=== PATIENT | female | born 1980 | race American Indian/Alaskan Native ===

== ENCOUNTER 2017-01-27 09:22 | Emergency (ER) | payer OTHER ==
--- NOTE | 2017-01-27 10:09 | Emergency Department Report ---
Entered by PAULA JAIN, acting as scribe for BLAINE GARCIA NP. Chief Complaint: Abdominal Pain Stated Complaint: ABD PAIN Time Seen by Provider: 01/27/17 09:55 - HPI History of Present Illness: 36 y/o non-toxic, non ill appearing female in no acute distress presents to ED c /o epigastric abdominal pain since 3 months ago with associated weight loss. Has been seen multiple times at other hospitals with x-rays, U/S, CT and was told this was a result of gastric lap band. Pt notes associated hematemesis, N/V , and constipation. Reports inability to swallow for past couple of days. - ROS Review of Systems: + epigastric abdominal pain, N/V, hematemesis, constipation - diarrhea - Exam Vital Signs: Vital Signs 01/27/17 09:46 Temperature 98.6 F Pulse Rate 120 H Respiratory 20 Rate Blood Pressure 159/114 O2 Sat by Pulse 97 Oximetry Physical Exam: Pt is non-toxic, non ill appearing, in no acute distress. Epigastric abdominal pain, no point tenderness or rebound tenderness MSE screening note: Focused history and physical exam performed. Due to findings the following was ordered: EKG, amylase, lipase, CBC, CMP, troponin, BMP, UA, CT abd/pelvis w/ contrast, CT chest w/ contrast ED Disposition for MSE Condition: Stable Instructions: Abdominal Pain (ED) This documentation as recorded by the scribe,PAULA JAIN,accurately reflects the service I personally performed and the decisions made by JOSE hathaway MARTIN, TIM.
[2017-01-27 10:21] LABS: Basophils % (Auto) 0.8 % (0.0-1.8); Eosinophils % (Auto) 0.1 % (0.0-4.3); Hematocrit 37.3 % (30.3-42.9); Hemoglobin 11.7 gm/dl (10.1-14.3); Mean Corpuscular HGB Conc 31 % (30-34); Mean Corpuscular Hemoglobin 27 pg (28-32); Mean Corpuscular Volume 85 fl (79-97); Platelet Count 291 K/mm3 (140-440); Red Blood Count 4.39 M/mm3 (3.65-5.03); Red Cell Distribution Width 15.4 % (13.2-15.2); White Blood Count 16.2 K/mm3 (4.5-11.0)
[2017-01-27 10:37] LABS: Alanine Aminotransferase 11 units/L (7-56); Albumin 3.8 g/dL (3.9-5); Albumin/Globulin Ratio 0.9 %; Amylase 40 units/L (27-131); Anion Gap 22 mmol/L; BUN/Creatinine Ratio 18.57; Blood Urea Nitrogen 13 mg/dL (7-17); Calcium 9.6 mg/dL (8.4-10.2); Carbon Dioxide 23 mmol/L (22-30); Chloride 100.3 mmol/L (98-107); Glucose 85 mg/dL (65-100); Lipase 11 units/L (13-60); Potassium 4.1 mmol/L (3.6-5.0); Sodium 141 mmol/L (137-145); Total Protein 7.9 g/dL (6.3-8.2)
[2017-01-27] MEDS ORDERED: NACL ONE (10:44)
--- NOTE | 2017-01-27 11:49 | Cat Scan Report ---
CT SCAN OF THE ABDOMEN AND PELVIS WITH CONTRAST: HISTORY: Abdominal pain. TECHNIQUE: Helical CT in 1.25mm intervals following IV contrast. Sagittal and coronal reconstructions. FINDINGS: No relevant comparison. A LAP band device has been previously placed. The position of the band appears slightly abnormal. Slippage is suspected. There is also a small fluid collection adjacent to the port of the LAP band in the umbilical region which probably represents a seroma measuring 3 x 4 cm. Consider surgical consult. The bowel loops are normal caliber and wall thickness given no oral contrast was administered. No obvious abnormality is detected. The appendix is not confidently identified. The uterus is enlarged and lobular. There appear to be 2 large fibroids which enhance. A 9 cm fundal fibroid is identified. There is also a 12 cm exophytic fibroid from the left side of the uterine fundus which projects into the left abdomen. The ovaries are not confidently identified. The liver is normal in size and is without focal defect. No gallstones or biliary dilatation are noted. The spleen and pancreas demonstrate a normal size and attenuation with no evidence of abnormal mass. The kidneys are normal in size and position with no evidence of hydronephrosis or mass. The adrenal glands are normal. The abdominal aorta is normal. No abnormalities are identified within the retroperitoneum or mesentery. There is no evidence of peritoneal air or fluid. There is no evidence of any abnormal masses or fluid collections within the pelvis. No adenopathy is identified. The bladder is normal. IMPRESSION: No acute inflammatory process is appreciated. Slightly abnormal appearance of the LAP band device. Please see above. Uterine fibroid disease.
[2017-01-27] MEDS ORDERED: ZOFRAN IV ONE (12:23)
[2017-01-27] MEDS ORDERED: PEPCID IV ONE (12:23)
[2017-01-27] MEDS ORDERED: NACL 0.9% 1000 ML 2,000 ML IV ONE (12:23)
[2017-01-27] MEDS ORDERED: DILAUDID IV ONE (12:24)
--- NOTE | 2017-01-27 12:29 | Emergency Department Report ---
ED General Adult HPI - General Chief complaint: Abdominal Pain Stated complaint: ABD PAIN Time Seen by Provider: 01/27/17 11:10 Source: patient, RN notes reviewed Mode of arrival: Ambulatory Limitations: No Limitations - History of Present Illness Initial comments: This is a 36-year-old female. She is previously unknown to me. Reports a history of GERD/gastritis. The patient presents to the ER with epigastric abdominal pain for 3 months. Patient had a lap band surgery done in 2011, her bariatric surgeon is Dr. Angelina Contreras The patient is sent to the ER for evaluation of dog abdominal pain, nausea and vomiting. The abdominal pain is epigastric. It is sharp. It does not radiate anywhere. Patient reports multiple episodes of nausea and vomiting. Patient reports that she has not defecated for a while, she denies irritative and obstructive urinary symptoms, she denies shortness of breath, chest pain. She reports that she has vomited so much, that she's had a few episodes of blood tinged emesis. She denies bright red blood per rectum. -: Gradual, month(s) Severity scale (0 -10): 10 Consistency: intermittent Improves with: rest Worsens with: eating, movement Associated Symptoms: loss of appetite, malaise, nausea/vomiting, weakness. denies: chest pain - Related Data Home Medications Medication Instructions Recorded Confirmed Last Taken LORazepam [Ativan] 1 mg PO BID 01/27/17 01/27/17 Unknown Promethazine [Phenergan TAB] 25 mg PO Q6HR PRN 01/27/17 01/27/17 Unknown metFORMIN [Glucophage] 500 mg PO QDAY 01/27/17 01/27/17 Unknown Previous Rx's Medication Instructions Recorded Last Taken Type Ciprofloxacin HCl [Ciprofloxacin 500 mg PO BID #10 tablet 01/27/17 Unknown Rx TAB] Dicyclomine [Bentyl] 10 mg PO QID PRN #20 capsule 01/27/17 Unknown Rx Famotidine [Pepcid] 20 mg PO QDAY #30 tablet 01/27/17 Unknown Rx Metoclopramide [Reglan] 10 mg PO QID PRN #30 tablet 01/27/17 Unknown Rx oxyCODONE [Roxicodone] 5 mg PO Q6HR PRN #15 tablet 01/27/17 Unknown Rx Allergies Allergy/AdvReac Type Severity Reaction Status Date / Time No Known Allergies Allergy Unverified 07/28/13 09:57 ED Review of Systems ROS: Stated complaint: ABD PAIN Other details as noted in HPI Constitutional: denies: fever Eyes: denies: vision change ENT: denies: epistaxis Respiratory: denies: cough Cardiovascular: denies: chest pain Gastrointestinal: abdominal pain Genitourinary: denies: urgency, dysuria Musculoskeletal: denies: back pain Skin: denies: lesions Neurological: denies: weakness Psychiatric: anxiety ED Past Medical Hx - Past Medical History Previous Medical History?: Yes Hx Hypertension: Yes Hx GERD: Yes Hx COPD: Yes Additional medical history: Obesity, Hypoglycemia, Cyst on esophagus - Surgical History Past Surgical History?: Yes Additional Surgical History: Lap band surgery - Social History Smoking Status: Never Smoker Substance Use Type: Prescribed - Medications Home Medications: Home Medications Medication Instructions Recorded Confirmed Last Taken Type Ciprofloxacin HCl [Ciprofloxacin 500 mg PO BID #10 tablet 01/27/17 Unknown Rx TAB] Dicyclomine [Bentyl] 10 mg PO QID PRN #20 capsule 01/27/17 Unknown Rx Famotidine [Pepcid] 20 mg PO QDAY #30 tablet 01/27/17 Unknown Rx LORazepam [Ativan] 1 mg PO BID 01/27/17 01/27/17 Unknown History Metoclopramide [Reglan] 10 mg PO QID PRN #30 tablet 01/27/17 Unknown Rx Promethazine [Phenergan TAB] 25 mg PO Q6HR PRN 01/27/17 01/27/17 Unknown History metFORMIN [Glucophage] 500 mg PO QDAY 01/27/17 01/27/17 Unknown History oxyCODONE [Roxicodone] 5 mg PO Q6HR PRN #15 tablet 01/27/17 Unknown Rx ED Physical Exam - General Limitations: No Limitations General appearance: obese - Head Head exam: Present: atraumatic, normocephalic - Eye Eye exam: Present: normal appearance, EOMI. Absent: nystagmus - ENT ENT exam: Present: normal exam, normal orophraynx, mucous membranes moist, normal external ear exam - Neck Neck exam: Present: normal inspection, full ROM. Absent: tenderness, meningismus - Respiratory Respiratory exam: Present: normal lung sounds bilaterally. Absent: respiratory distress, wheezes, rales, rhonchi, stridor, chest wall tenderness, accessory muscle use, decreased breath sounds, prolonged expiratory - Cardiovascular Cardiovascular Exam: Present: regular rate, normal rhythm, normal heart sounds. Absent: bradycardia, tachycardia, irregular rhythm, systolic murmur, diastolic murmur, rubs, gallop - GI/Abdominal GI/Abdominal exam: Present: soft, normal bowel sounds. Absent: distended, tenderness, guarding, rebound, rigid, pulsatile mass - Rectal Rectal exam: Present: normal inspection, normal rectal tone, heme (-) stool ( during rectal examination, I am escorted by nurse CALVIN MYERS) - Extremities Exam Extremities exam: Present: normal inspection, full ROM, normal capillary refill. Absent: tenderness, pedal edema, joint swelling, calf tenderness - Back Exam Back exam: Present: normal inspection, full ROM. Absent: tenderness, CVA tenderness (R), CVA tenderness (L), muscle spasm, paraspinal tenderness, vertebral tenderness - Neurological Exam Neurological exam: Present: alert, oriented X3, normal gait, other (Extraocular movements intact. Tongue midline. No facial droop. Facial sensation intact to light touch in the V1, V2, V3 distribution bilaterally. 5 and 5 strength in 4 extremities.. Sensation is intact to light touch in 4 extremities.). Absent : reflexes normal - Psychiatric Psychiatric exam: Present: normal affect, normal mood - Skin Skin exam: Present: warm, dry, intact, normal color. Absent: rash ED Course Vital Signs 01/27/17 01/27/17 01/27/17 09:46 10:52 13:37 Temperature 98.6 F Pulse Rate 120 H 116 H Respiratory 20 18 18 Rate Blood Pressure 159/114 Blood Pressure 174/122 [Left] O2 Sat by Pulse 97 97 Oximetry 01/27/17 01/27/17 15:20 15:42 Temperature Pulse Rate 112 H 98 H Respiratory 18 18 Rate Blood Pressure Blood Pressure 153/111 166/107 [Left] O2 Sat by Pulse 95 95 Oximetry - Reevaluation(s) Reevaluation #1: 01/27/17 13:14 Differential diagnosis: GERD, gastritis, reflux, lap band malfunction Assessment and plan: 36-year-old female with reported abdominal pain, nausea, vomiting, reported bloody emesis. The patient reports that she is seen in another hospital a few days ago, [facility] in [place], had a swallow study done, indicates that it demonstrated a nonspecific fluid collection next to the LAP-BAND. The patient is seen today by her bariatric surgeon, he is going to evaluate her and make recommendations regarding her management. I doubt acute coronary syndrome, she is low risk by ADILSON score, low risk by heart score, I doubt pulmonary embolus, she is low risk by well's criteria, and given her clinical exam, history, CT scan findings, bariatric malfunction the most likely etiology of the patient's pain. Reevaluation #2: 01/27/17 13:26 Dr Carmona aspirates 7 cc of fluid. He recommends an upper GI series. This is ordered. He indicates that patient can follow-up with him in the office within the next 48-72 hours. Reevaluation #3: 01/27/17 15:44 tachycardia resolved. Tolerating liquid feeds. Belly soft on repeat examination. Upper GI series is appreciated. This has been specifically addressed by the patient's bariatric surgeon, he indicates it is acceptable to discharge the patient with this, clinically I dont think the patient is obstructed, she is able to tolerate ice chips and liquid feeds. The patient will be discharged with pain medication, nausea medication, instructions to follow up with her outpatient bariatric surgeon. 01/27/17 15:53 ED Medical Decision Making - Lab Data Result diagrams: 01/27/17 10:05 01/27/17 10:05 Vital Signs 01/27/17 01/27/17 09:46 10:52 Temperature 98.6 F Pulse Rate 120 H 116 H Respiratory 20 18 Rate Blood Pressure 159/114 Blood Pressure 174/122 [Left] O2 Sat by Pulse 97 97 Oximetry Lab Results 01/27/17 01/27/17 01/27/17 Range/Units 10:05 10:05 10:05 WBC 16.2 H (4.5-11.0) K/mm3 RBC 4.39 (3.65-5.03) M/mm3 Hgb 11.7 (10.1-14.3) gm/dl Hct 37.3 (30.3-42.9) % MCV 85 (79-97) fl MCH 27 L (28-32) pg MCHC 31 (30-34) % RDW 15.4 H (13.2-15.2) % Plt Count 291 (140-440) K/mm3 Lymph % (Auto) 13.6 (13.4-35.0) % Anderson % (Auto) 6.1 (0.0-7.3) % Eos % (Auto) 0.1 (0.0-4.3) % Baso % (Auto) 0.8 (0.0-1.8) % Lymph # 2.2 (1.2-5.4) K/mm3 Anderson # 1.0 H (0.0-0.8) K/mm3 Eos # 0.0 (0.0-0.4) K/mm3 Baso # 0.1 (0.0-0.1) K/mm3 Seg Neutrophils % 79.4 H (40.0-70.0) % Seg Neutrophils # 12.9 H (1.8-7.7) K/mm3 Sodium 141 (137-145) mmol/L Potassium 4.1 (3.6-5.0) mmol/L Chloride 100.3 (98-107) mmol/L Carbon Dioxide 23 (22-30) mmol/L Anion Gap 22 mmol/L BUN 13 (7-17) mg/dL Creatinine 0.7 (0.7-1.2) mg/dL Estimated GFR > 60 ml/min BUN/Creatinine Ratio 18.57 % Glucose 85 (65-100) mg/dL Calcium 9.6 (8.4-10.2) mg/dL Total Bilirubin 0.80 (0.1-1.2) mg/dL ALT 11 (7-56) units/L Alkaline Phosphatase 76 (35-129) units/L Troponin T < 0.010 (0.00-0.029) ng/mL Total Protein 7.9 (6.3-8.2) g/dL Albumin 3.8 L (3.9-5) g/dL Albumin/Globulin Ratio 0.9 % Amylase 40 (27-131) units/L Lipase 11 L (13-60) units/L HCG, Quant (0-4) mIU/mL 01/27/17 01/27/17 Range/Units 12:33 12:33 WBC (4.5-11.0) K/mm3 RBC (3.65-5.03) M/mm3 Hgb (10.1-14.3) gm/dl Hct (30.3-42.9) % MCV (79-97) fl MCH (28-32) pg MCHC (30-34) % RDW (13.2-15.2) % Plt Count (140-440) K/mm3 Lymph % (Auto) (13.4-35.0) % Anderson % (Auto) (0.0-7.3) % Eos % (Auto) (0.0-4.3) % Baso % (Auto) (0.0-1.8) % Lymph # (1.2-5.4) K/mm3 Anderson # (0.0-0.8) K/mm3 Eos # (0.0-0.4) K/mm3 Baso # (0.0-0.1) K/mm3 Seg Neutrophils % (40.0-70.0) % Seg Neutrophils # (1.8-7.7) K/mm3 Sodium (137-145) mmol/L Potassium (3.6-5.0) mmol/L Chloride (98-107) mmol/L Carbon Dioxide (22-30) mmol/L Anion Gap mmol/L BUN (7-17) mg/dL Creatinine (0.7-1.2) mg/dL Estimated GFR ml/min BUN/Creatinine Ratio % Glucose (65-100) mg/dL Calcium (8.4-10.2) mg/dL Total Bilirubin (0.1-1.2) mg/dL ALT (7-56) units/L Alkaline Phosphatase (35-129) units/L Troponin T < 0.010 (0.00-0.029) ng/mL Total Protein (6.3-8.2) g/dL Albumin (3.9-5) g/dL Albumin/Globulin Ratio % Amylase (27-131) units/L Lipase (13-60) units/L HCG, Quant < 2 (0-4) mIU/mL - EKG Data -: EKG Interpreted by In EKG shows normal: sinus rhythm Rate: bradycardia - EKG Data 01/27/17 13:14 Sinus tachycardia, 112 bpm, normal intervals, normal axis, not morphologically consistent with STEMI - Radiology Data Radiology results: report reviewed, image reviewed CT scan of the abdomen and pelvis with IV contrast: Lap band device has been previously placed. The position of the band appears slightly abnormal. Slippage is suspected. There is also a small fluid collection next to the port of the lap band in the umbilical region, most likely represents a seroma, 3.4 cm. The bowel loops are normal in caliber. Wall thickness appears unremarkable, the appendix is not confidently identified. The uterus is enlarged and globular. 2 large fibroid uterus lesions noted. X- ray of the chest is negative for acute disease. Upper GI series: There is slippage of the lap band. This may also mildly obstruct as there is poor passage of the contrast passed the lap band. Critical care attestation.: If time is entered above; I have spent that time in minutes in the direct care of this critically ill patient, excluding procedure time. ED Disposition Clinical Impression: Abdominal pain Disposition: DISCHARGED TO HOME OR SELFCARE Is pt being admited?: No Does the pt Need Aspirin: No Condition: Stable Instructions: Abdominal Pain (ED) Additional Instructions: Do not take metformin for the next 48 hours. Take the pain medication, nausea medication, antibiotics as directed. Follow-up with your bariatric surgeon within the next week. Diet as tolerated. Drink plenty of fluids. Avoid heavy and spicy foods. Return to the ER right away with new pain, worsened pain, migration of pain, fevers or chills, intractable nausea or vomiting, inability to tolerate liquid feeds. If taking the oxycodone medication, do not consume alcohol, drive, make important decisions. Prescriptions: Ciprofloxacin HCl [Ciprofloxacin TAB] 500 mg PO BID #10 tablet Dicyclomine [Bentyl] 10 mg PO QID PRN #20 capsule PRN Reason: Pain Famotidine [Pepcid] 20 mg PO QDAY #30 tablet Metoclopramide [Reglan] 10 mg PO QID PRN #30 tablet PRN Reason: Nausea oxyCODONE [Roxicodone] 5 mg PO Q6HR PRN #15 tablet PRN Reason: Pain Referrals: PRIMARY CARE, [Primary Care Provider] - 3-5 Days CAROLE CONTRERAS MD [Staff Physician] - 3-5 Days JOSE L REEVES MD [Staff Physician] - 3-5 Days
[2017-01-27] MEDS ORDERED: XYLOCAINE 1% 20 mL ONE (13:07)
[2017-01-27 13:08] LABS: Alkaline Phosphatase 76 units/L (35-129)
[2017-01-27] MEDS ORDERED: XYLOCAINE 1% 20 mL INFILTRATI ONE (13:31)
[2017-01-27 13:47] LABS: Bacteria,Urine 1+ /HPF (Negative); Bilirubin,Urine NEG (Negative); Blood,Urine NEG (Negative); Ketones,Urine 80 mg/dL (Negative); Leukocyte Esterase,Urine NEG (Negative); Mucus,Urine 2+ /HPF; Nitrite,Urine NEG (Negative); Urobilinogen,Urine < 2.0 mg/dL (<2.0)
--- NOTE | 2017-01-27 15:05 | XRay Report ---
AP CHEST : 01/27/17 09:22:00 CLINICAL: Hemoptysis or hematemesis. COMPARISON:07/07/08 FINDINGS: Cardiomegaly and redistribution of pulmonary blood flow to the upper lobes is partially related to body habitus and the portable technique. The lungs are also underexpanded but clear. The bones and soft tissues are unremarkable. IMPRESSION: Cardiomegaly but no CHF.No pneumonia.
--- NOTE | 2017-01-27 15:27 | Fluoroscopy Report ---
UPPER GI SERIES WITH AIR-CONTRAST HISTORY: Abdominal pain, evaluate late band. FINDINGS: Deglutition is normal. No evidence for aspiration. The esophagus is normal caliber and mucosal pattern. There is delayed emptying of the esophagus throughout this exam. Occasional esophageal spasm was also witnessed. A LAP band is identified which is in an abnormal position. Slippage of the lap band is suspected. This may also mildly obstruct as there is poor passage of the contrast past the LAP band. The distal stomach and visualized duodenum are within normal limits. IMPRESSION: Slippage of the LAP band is suspected. This appears to mildly obstruct the patient. There is poor emptying of the esophagus and proximal stomach throughout this exam.
[2017-01-27] MEDS ORDERED: NORMODYNE IV ONE (15:39)
[2017-01-27 15:43] VITALS: BP 166/107
--- NOTE | 2017-01-27 16:16 | Operative Report ---
PREOPERATIVE DIAGNOSES: Nausea, vomiting, status post tight band possible slippage. POSTOPERATIVE DIAGNOSES: Nausea, vomiting, status post tight band possible slippage. PROCEDURE: Band adjustment at bedside. The patient tolerated the procedure well. DESCRIPTION OF PROCEDURE: I saw the patient at bedside. The area of the port prepped, ____ aspiration recommended. ____ aspiration of fluid, removed 7 mL of fluid from her band. Needle removed. VAC was placed. The patient tolerated liquids post procedure. JOB# [id number] STEVEN/JASPREET
--- NOTE | 2017-01-28 07:06 | Consultation ---
REASON FOR VISIT: Nausea, vomiting, status post lap band. HISTORY OF PRESENT ILLNESS: A 36-year-old year female with status post lap band, who had not seen in about 4 years. This client is up in the ER with nausea, vomiting, inability to keep anything down for the last 2-3 months; however, the last couple of days, she has not been able to keep her own saliva down. She has a low-grade fever, but otherwise unremarkable. PAST MEDICAL HISTORY: No diabetes, hypertension. MEDICATIONS: Per chart. ALLERGIES: None. SOCIAL HISTORY: Not drink or smoke. REVIEW OF SYSTEMS: Otherwise, unremarkable. PHYSICAL EXAMINATION: VITAL SIGNS: Stable. T-max 100. HEENT: Unremarkable. Pupils equal, reactive. NECK: No JVD. Trachea midline. RESPIRATORY: Clear. CARDIOVASCULAR: Regular rate and rhythm. ABDOMEN: Soft, nontender. Port in good position. EXTREMITIES: Good range of motion. NEUROLOGIC: Intact. PSYCHIATRIC: Alert and oriented x 3. LABORATORY DATA: Show white count is 16, otherwise unremarkable. IMAGING DATA: CT scan of the abdomen and pelvis reveals a lap band in place, probable slippage chronically. No evidence of ischemia noted. The port in good position. There is a fluid collection inferior to the port and that looks old and chronic. ASSESSMENT AND PLAN: Nausea, vomiting, probable band 2 type with associated slip. We will take off the slipped rubber band today and then get an upper GI post-fluid removal, make sure contrast goes through the band. If contrast does not go through the band then she will need a band removal. The patient understands the plan and agrees to proceed. JOB# [id number] STEVEN/JASPREET
== END 2017-01-27 16:26 | disposition home or self-care (01) ==
LOC: ED 09:22
DX: R10.13 Epigastric pain (principal); I10 Essential (primary) hypertension; K21.9 Gastro-esophageal reflux disease without esophagitis; J45.909 Unspecified asthma, uncomplicated
CPT/HCPCS: 10160; 36415; 71010; 74177; 74247; 80053; 81001; 82150; 82271; 83690; 84484; 84702; 85025; 93005; 93010; 96374; 96375; 99285; J1170; J2405; J7030; Q9967

== ENCOUNTER 2017-01-31 09:19 | Day surgery (SDC) | payer SELFPAY ==
[2017-01-31 10:55] LABS: Basophils % (Auto) 1.1 % (0.0-1.8); Eosinophils % (Auto) 5.8 % (0.0-4.3); Hematocrit 37.5 % (30.3-42.9); Hemoglobin 11.8 gm/dl (10.1-14.3); Mean Corpuscular HGB Conc 31 % (30-34); Mean Corpuscular Hemoglobin 27 pg (28-32); Mean Corpuscular Volume 86 fl (79-97); Platelet Count 310 K/mm3 (140-440); Red Blood Count 4.38 M/mm3 (3.65-5.03); Red Cell Distribution Width 14.9 % (13.2-15.2); White Blood Count 6.9 K/mm3 (4.5-11.0)
[2017-01-31 11:28] LABS: Anion Gap 18 mmol/L; Blood Urea Nitrogen 8 mg/dL (7-17); Calcium 9.4 mg/dL (8.4-10.2); Carbon Dioxide 28 mmol/L (22-30); Chloride 99.1 mmol/L (98-107); Glucose 82 mg/dL (65-100); Potassium 3.6 mmol/L (3.6-5.0); Sodium 141 mmol/L (137-145)
[2017-01-31] MEDS ORDERED: NACL 0.9% 1000 ML 1,000 ML IV SCH (14:00)
[2017-01-31] MEDS ORDERED: VERSED IV NR (14:00)
[2017-01-31] MEDS ORDERED: PROVENTIL IH NR (14:00)
[2017-01-31] MEDS ORDERED: PEPCID IV NR (14:00)
[2017-01-31] MEDS ORDERED: ZOFRAN IV NR (14:00)
--- NOTE | 2017-01-31 14:06 | Short Stay Summary ---
Short Stay Documentation Date of service: 01/31/17 Narrative H&P: 37 yo female s/p lap band with slip with persistant n/v after fluid removed from band. Needs emergent band removal - History Principal diagnosis: slipped lap band Past Medical History: No medical history (lap band) Social history: no significant social history - Allergies and Medications Current Medications: Allergies No Known Allergies Allergy (Unverified 07/28/13 09:57) Home Medications Medication Instructions Recorded Confirmed Last Taken Type Ciprofloxacin HCl [Ciprofloxacin 500 mg PO BID #10 tablet 01/27/17 Unknown Rx TAB] Dicyclomine [Bentyl] 10 mg PO QID PRN #20 capsule 01/27/17 Unknown Rx Famotidine [Pepcid] 20 mg PO QDAY #30 tablet 01/27/17 Unknown Rx LORazepam [Ativan] 1 mg PO BID 01/27/17 01/27/17 Unknown History Metoclopramide [Reglan] 10 mg PO QID PRN #30 tablet 01/27/17 Unknown Rx Promethazine [Phenergan TAB] 25 mg PO Q6HR PRN 01/27/17 01/27/17 Unknown History metFORMIN [Glucophage] 500 mg PO QDAY 01/27/17 01/27/17 Unknown History oxyCODONE [Roxicodone] 5 mg PO Q6HR PRN #15 tablet 01/27/17 Unknown Rx Active Medications Albuterol (Proventil) 2.5 mg IH PREOP NR Famotidine (Pepcid) 20 mg IV PREOP NR Sodium Chloride (Nacl 0.9% 1000 Ml) 1,000 mls @ 75 mls/hr IV DIRECT SYLVIA Midazolam HCl (Versed) 2 mg IV PREOP NR Stop: 01/31/17 23:59 Ondansetron HCl (Zofran) 4 mg IV PREOP NR - Physical exam General appearance: no acute distress HEENT: Atraumatic Lungs: Clear to auscultation Breasts: deferred Heart: Regular rate Gastrointestinal: normal, normoactive bowel sounds Female Genitourinary: deferred Rectal Exam: deferred Extremities: no ischemia Neurological: Normal gait, Normal speech, Strength at 5/5 X4 ext Short Stay Discharge Plan Follow up with: PRIMARY CARE, [Primary Care Provider] - 7 Days
[2017-01-31] MEDS ORDERED: NACL BACTERIOSTATIC INFILTRATI ONE (14:14)
--- NOTE | 2017-01-31 14:45 | Anesthesia Day of Surgery ---
Anesthesia Day of Surgery - Day of Surgery Patient Examined: Yes Patient H&P Reviewed: Yes Patient is NPO: Yes
[2017-01-31] MEDS ORDERED: SUBLIMAZE IV PRN (14:46)
--- NOTE | 2017-01-31 14:46 | Anesthesia Consultation ---
Anesthesia Consult and Med Hx Date of service: 01/31/17 - Airway Anesthetic Teeth Evaluation: Good ROM Head & Neck: Adequate Mental/Hyoid Distance: Inadequate Mallampati Class: Class III Intubation Access Assessment: Possibly Difficult - Pulmonary Exam CTA: Yes (blbs clear) - Cardiac Exam Cardiac Exam: RRR - Pre-Operative Health Status ASA Pre-Surgery Classification: ASA3 Proposed Anesthetic Plan: General - Pulmonary Hx Asthma: Yes COPD: Yes - Cardiovascular System Hx Hypertension: Yes - Central Nervous System Hx Psychiatric Problems: Yes (anxiety) - Endocrine Hx Non-Insulin Dependent Diabetes: Yes - Other Systems Hx Obesity: Yes
[2017-01-31] MEDS ORDERED: ANCEF/STERILE WATER 2 GM/20 ML IV NR (15:00)
[2017-01-31] MEDS ORDERED: NEO SYNEPHRINE/NS Syringe(OR USE) IV ONE (15:00)
[2017-01-31] MEDS ORDERED: LOVENOX SUB-Q NR (15:00)
[2017-01-31 15:14] LABS: Bacteria,Urine 1+ /HPF (Negative); Bilirubin,Urine NEG (Negative); Blood,Urine NEG (Negative); Ketones,Urine NEG (Negative); Leukocyte Esterase,Urine NEG (Negative); Mucus,Urine 3+ /HPF; Nitrite,Urine NEG (Negative); Urobilinogen,Urine < 2.0 mg/dL (<2.0)
[2017-01-31] MEDS ORDERED: MARCAINE-EPI 0.25%-1:200,000 INFILTRATI ONE ×2 (15:18→16:10)
[2017-01-31] MEDS ORDERED: XYLOCAINE MPF 2% ONE (15:32)
[2017-01-31] MEDS ORDERED: SUBLIMAZE ONE (15:32)
[2017-01-31] MEDS ORDERED: ZEMURON IV ONE (15:32)
[2017-01-31] MEDS ORDERED: DIPRIVAN 10 MG/ML IV ONE (15:32)
[2017-01-31] MEDS ORDERED: QUELICIN ONE (15:36)
[2017-01-31] MEDS ORDERED: DECADRON ONE (15:37)
[2017-01-31] MEDS ORDERED: ZOFRAN ONE (15:37)
[2017-01-31] MEDS ORDERED: MARCAINE 0.25% INFILTRATI ONE ×2 (16:10→16:12)
[2017-01-31] MEDS ORDERED: NACL 0.9% IR ONE (16:10)
[2017-01-31] MEDS ORDERED: NEOSTIGMINE ONE (16:37)
[2017-01-31] MEDS ORDERED: ROBINUL ONE (16:37)
--- NOTE | 2017-01-31 16:45 | Short Stay Summary ---
Short Stay Documentation - History Past Medical History: No medical history (lap band) Social history: no significant social history - Allergies and Medications Current Medications: Allergies No Known Allergies Allergy (Unverified 07/28/13 09:57) Home Medications Medication Instructions Recorded Confirmed Last Taken Type Ciprofloxacin HCl [Ciprofloxacin 500 mg PO BID #10 tablet 01/27/17 01/31/1708/08 Rx TAB] Dicyclomine [Bentyl] 10 mg PO QID PRN #20 capsule 01/27/17 01/31/17 01/30/17 Rx Famotidine [Pepcid] 20 mg PO QDAY #30 tablet 01/27/17 01/31/17 01/30/17 Rx LORazepam [Ativan] 1 mg PO BID 01/27/17 01/31/17 01/30/17 History Metoclopramide [Reglan] 10 mg PO QID PRN #30 tablet 01/27/17 01/31/17 01/30/17 Rx Promethazine [Phenergan TAB] 25 mg PO Q6HR PRN 01/27/17 01/31/17 01/29/17 History metFORMIN [Glucophage] 500 mg PO QDAY 01/27/17 01/31/17 01/03/17 History oxyCODONE [Roxicodone] 5 mg PO Q6HR PRN #15 tablet 01/27/17 01/31/17 01/30/17 Rx ALBUTEROL Inhaler [Proair] 2 puff IH QID PRN 01/31/17 01/31/17 01/27/17 History Fluticasone/Vilanterol [Breo 1 each IH QDAY 01/31/17 01/31/17 01/27/17 History Ellipta 100-25 Mcg INH] Active Medications Albuterol (Proventil) 2.5 mg IH PREOP NR Stop: 01/31/17 23:59 Last Admin: 01/31/17 14:47 Dose: 2.5 mg Cefazolin Sodium (Ancef/Sterile Water 2 Gm/20 Ml) 2 gm IV PREOP NR Stop: 01/31/17 23:59 Famotidine (Pepcid) 20 mg IV PREOP NR Stop: 01/31/17 23:59 Last Admin: 01/31/17 14:44 Dose: 20 mg Fentanyl (Sublimaze) 50 mcg IV Q5MIN PRN PRN Reason: Pain , Severe (7-10) Stop: 01/31/17 23:47 Hydromorphone HCl (Dilaudid) 0.25 mg IV Q10MIN PRN PRN Reason: Pain, Moderate (4-6) Stop: 01/31/17 23:47 Sodium Chloride (Nacl 0.9% 1000 Ml) 1,000 mls @ 75 mls/hr IV DIRECT SYLVIA Last Admin: 01/31/17 14:35 Dose: 75 mls/hr Midazolam HCl (Versed) 2 mg IV PREOP NR Stop: 01/31/17 23:59 Last Admin: 01/31/17 15:04 Dose: 2 mg Ondansetron HCl (Zofran) 4 mg IV PREOP NR Stop: 01/31/17 23:59 Last Admin: 01/31/17 14:42 Dose: 4 mg - Physical exam Breasts: deferred Heart: Regular rate Extremities: no ischemia - Brief post op/procedure progress note Date of procedure: 01/31/17 Pre-op diagnosis: slipped lap band Post-op diagnosis: same Procedure: Lap band removal Anesthesia: GETA Findings: slipped lap band Surgeon: CAROLE CONTRERAS Estimated blood loss: none Pathology: none Condition: stable - Disposition Condition at discharge: Stable Short Stay Discharge Plan Activity: advance as tolerated Weight Bearing Status: Weight Bear as Tolerated Diet: regular Wound: keep clean and dry Follow up with: CAROLE CONTRERAS MD [Staff Physician] - 7 Days
--- NOTE | 2017-01-31 17:01 | Admit Criteria Form ---
Admission Criteria Documentation: AMBULATORY SURGERY EXCEPTION CRITERIA Ambulatory Surgery Exception Criteria ( Place 'X' for any and all applicable criteria): Surgery or procedure performed on ambulatory basis may require inpatient stay for[A] ANY ONE of the following(1)(2)(3)(4)(5)(6)(7)(8)(9): [X] I. A preoperative situation, condition, or finding that warrants inpatient stay as indicated by ANY ONE of the following: [] a) Inpatient care needed because of severity of a disease or condition rather than the surgery (eg, severe cardiac or respiratory disease, severe infection) (15) (16 ) (17) (18) [] b) Emergent procedure (eg, angioplasty for acute ischemia)(19) [] c) Complex surgical approach or situation as indicated by ANY ONE of the following(3): [] i) Open approach needed instead of usual endoscopic, transcatheter, or other less invasive procedure [] ii) Difficult approach because of previous operation [] iii) Airway monitoring required after open neck procedures(20)(21) [] iv) Large mass requiring unusually extensive dissection [] v) Additional complicating feature requiring inpatient care (eg, drain management)(22(23): [X] d) Major surgery in a pt with high anesthetic risk as indicated by ANY ONE of the following (2)(3)(5)(7)(8): [X] i) ASA risk class III or higher (severe systemic disease impairing function) [D] [] ii) Advanced age (eg, older than 85 years)(14)(24) [] iii) Symptomatic heart failure(25) [] iv) Symptomatic asthma or COPD(8)(21) [] v) Morbid obesity with hemodynamic or respiratory problems(20)( 21)(26)(27) [] vi) Obstructive sleep apnea(20)(21) [] vii) Former premature infants who are younger than 60 weeks [] viii) High risk for severe postoperative abnormalities (eg, severe postoperative hypocalcemia after parathyroidectomy for severe hyperparathyroidism)(27)( 28) [] ix) Unstable angina(25) [] e) Drug-related risk requiring inpatient stay as indicated by ANY ONE of the following(5)(10)(14)(32)(33) [] i) Procedure requires discontinuing drugs or other therapy (eg , antiarrhythmic medication, antiseizure medication), which necessitates inpatient observation or treatment.(18)(31) [] ii) Major surgery and high risk drug use as indicated by ANY ONE of the following: [] 1) Active abuse of cocaine or similar drug [] 2) Monoamine oxidase inhibitor use [] 3) Other drug identified as posing risk [] f) Inadequate outpatient care situation as indicated by ANY ONE of the following(5)(10)(14)(32)(33) [] i) Patient lives remote from medical facility and procedure has urgent complication potential, and temporary nearby residence cannot be arranged [] ii) Patient will have postprocedure incapacitation and inadequate assistance at home, or alternative level of care cannot be arranged. [] iii) Patient will have long general anesthesia or procedure side effect resolution time, and competent person to stay with patient on first postoperative night at home or alternative level of care cannot be arranged. []iv) Other inadequate outpatient situation that cannot be handled by other means [] II. A perioperative event, condition, or finding that warrants inpatient stay as indicated by ANY ONE of the following (1)(2)(3): [] a) Inadequate physiologic recovery: cardiovascular, respiratory, or hemodynamic status not normal or near preoperative baseline(18) [] b) Hemodynamic instability [] c) Patient not alert with near normal or baseline mental status [] d) Temperature not normal or as expected and not appropriate for outpatient treatment of condition [] e) Ambulatory or appropriate activity level status not yet achieved post procedure [E](34)(35)(36) [] f) Operative site not appropriate (eg, unexpected or excessive drainage or bleeding) [] g) Postoperative effects not resolved or adequately managed (eg, significant pain or vomiting not appropriate for outpatient or next level of care)(10)(12) [] h) Complicating features requiring inpatient care as indicated by ANY ONE of the following(37): [] i) Severe complications of procedure (eg, bowel injury, airway compromise, vascular injury,severe hemorrhage) [] ii) Extensive (eg, dissection far beyond usual scope of procedure ) or prolonged (eg, 120 minutes beyond usual) surgery needed requiring inpatient postoperative care [] iii) Conversion to an open or complex procedure that requires inpatient care (eg, open vs laparoscopic cholecystectomy, abdominal vs vaginal hysterectomy)(38) [] iv) Comorbid condition or test result identified during or post procedure that requires inpatient care (7) [] v) Malignant hyperthermia(30) [] vi) Other complicating feature requiring inpatient care(22)(23) Inpatient stay may be needed until ALL of the following are present (1)(2)(3)(4) (5)(6)(10)(14)(33)(40): []a) Physiologic recovery: cardiovascular, respiratory, and hemodynamic status normal or near preoperative baseline []b) Hemodynamic stability []c) Patient alert, with near normal or baseline mental status []d) Temperature appropriate: patient afebrile or temperature appropriate for outpt treatment of condition []e) Activity level appropriate: ambulatory or appropriate activity level post procedure []f) Operative site appropriate as indicated by ALL of the following: []i) Site dry or with expected drainage []ii) Any blood noted is as expected for procedure. []g) Postoperative effects resolved or managed as indicated by ALL of the following: []i) Pain management appropriate for outpatient (or next level of) care(10) []ii) Minimal nausea and vomiting: if present, successfully treated with oral medication(12) []iii) Headache, dizziness, or drowsiness (if present) are mild. []h) Voiding status acceptable as indicated by ANY ONE of the following: []i) Voiding spontaneously []ii) No voiding but instructions given for follow-up in 6 to 8 hours []iii) Urinary catheter in place, and instructions given for follow-up []i) Complicating features requiring inpatient care manageable at a lower level of care(37) []j) Comorbid conditions manageable at a lower level of care(37) The original [employer] content created by [employer] has been revised. The portions of the content which have been revised are identified through the use of italic text or in bold, and [facility] [employer] has neither reviewed nor approved the modified material. All other unmodified content is copyright [employer]. Please see references footnoted in the original [employer] edition 2016 Admission Criteria Met: Yes
--- NOTE | 2017-01-31 17:14 | Post Anesthesia Evaluation ---
- Post Anesthesia Evaluation Patient Participated: Yes Airway Patent: Yes Stable Respiratory Function: Yes Nausea/Vomiting: No Temp > 96.8F: Yes Pain Manageable: Yes Adequeate Hydration: Yes Anesthesia Complications: No Block Receding Appropriately: Not Applicable Patient on Ventilator: No
[2017-01-31] MEDS ORDERED: PERCOCET 5/325 PO PRN (17:16)
[2017-01-31] MEDS ORDERED: PHENERGAN PO PRN (17:17)
[2017-01-31] MEDS: DILAUDID IV PRN ×4 (17:21→17:45)
--- NOTE | 2017-01-31 18:16 | Operative Report ---
PREOPERATIVE DIAGNOSES: Slipped lap band with obstructive symptoms. POSTOPERATIVE DIAGNOSES: Slipped lap band with obstructive symptoms. PROCEDURE: Lap band removal. SURGEON: Vinay Bean MD TRANSFUSION NURSE: None. ANESTHESIA: General. ESTIMATED BLOOD LOSS: Minimal. COMPLICATIONS: None. DRAINS: None. SPECIMEN: None. The patient tolerated the procedure well. FINDINGS: Slipped lap band. No ischemia. Lap band removed without difficulty. INDICATION: A 36-year-old female status post lap band who had a slip, did not improve with removal of fluid, here for removal. DESCRIPTION OF PROCEDURE: The patient was taken to the OR, placed supine on the operating room. Once general anesthesia obtained, her anterior abdominal wall was prepped and draped in sterile fashion. Left upper quadrant incision was made Through this incision, Optiview trocar was used to enter the peritoneal cavity under direct visualization. A separate right upper quadrant trocar was placed. The incision overlying the port was incised. The incision was taken to subcutaneous tissue to the port. The port was dissected from surrounding soft tissues and attachments and the port and tube brought to the operative field. Tubing transected and through the opening of the tube, placed a 10 mm trocar. An epigastric 5 mm trocar was placed for a Lourdes retractor, elevated the left lobe of the liver. The tubing of the band was identified, dissected towards the buckle of the band. The band was visualized. The buckle was found, minimal adhesions were noted around the buckle ____ slip with a fair amount of stomach above the band. The band was unbuckled on the tunnel and then brought out from the tunnel, which had been placed into previously. No evidence of ischemia was noted. No perforation was noted. The band was then removed from the peritoneal cavity through the 10 mm trocar site. After adequate hemostasis, all ports removed, all retractors removed. CO2 evacuated. The 10 mm trocar site closed with 0 Ethibond, subcutaneous tissue was reapproximated with 3-0 Vicryl, and all skin incisions closed with subcuticular technique. Dermabond was placed on the incision. The patient tolerated the procedure well. JOB# [id number] STEVEN/JASPREET
[2017-01-31 18:31] VITALS: BP 150/88
== END 2017-01-31 19:00 | disposition home or self-care (01) ==
LOC: ED 09:19 → OR 09:19 → EDSTATUS 15:00 → OR 19:00
DX: K95.09 Other complications of gastric band procedure (principal); J44.9 Chronic obstructive pulmonary disease, unspecified; J45.909 Unspecified asthma, uncomplicated; I10 Essential (primary) hypertension; F41.9 Anxiety disorder, unspecified; E11.9 Type 2 diabetes mellitus without complications; E66.9 Obesity, unspecified; Z68.41 Body mass index [BMI] 40.0-44.9, adult
CPT/HCPCS: 36415; 43774; 80048; 81001; 81025; 82962; 85025; 88300; J0330; J0690; J1100; J1170; J1650; J2250; J2370; J2405; J2704; J2710; J3010; J7030; 88302

== ENCOUNTER 2021-08-20 08:39 | Outpatient (CLI) | payer OTHER | END 2021-08-20 08:40 | disposition home or self-care (01) | LOC: PF 08:39 | PROVIDERS: ATTEND Internal Medicine | DX: Z02.71 Encounter for disability determination (principal) | CPT/HCPCS: 94060; 94729 ==